=== PATIENT | female | born 1995 | race African-American/Black ===

== ENCOUNTER 2016-12-10 17:51 | Emergency (ER) | payer OTHER ==
[~2016-12-10] VITALS: Ht 165.1 cm; Wt 65.0 kg
[2016-12-10 17:55] VITALS: BP 145/99; PULSE 95; RESP 18; TEMP 99; O2SAT 98
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
[2016-12-10] MEDS ORDERED: HYDR25TA5 PO (18:26)
[2016-12-10 18:40] LABS: BLOOD, URINE NEG (NEG); COMMENT (UR) CULTURE INDICATED; CULTURE IF INDICATED CULTURE INDICATED; GLUCOSE,URINE NEG (NEG); KETONE, URINE NEG (NEG); MUCUS URINE FEW /lpf (OCC); NITRITE,URINE NEG (NEG); SQUAMOUS EPITHELIAL CELL URINE 24 /hpf (0-5); URINE COLOR YELLOW (YELLW/STRAW)
[2016-12-10] MEDS ORDERED: NITROFURANTOIN MONOHYD MACROCR 100 MG CAP PO ONE (18:45)
[2016-12-10] MEDS ORDERED: SODIUM CHLOR 0.9% 1000 ML INJ 1,000 ML IV ONE (18:45)
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
[2016-12-10] MEDS ORDERED: MACR100C2 PO (19:23)
[2016-12-10 19:59] VITALS: BP 120/76; PULSE 80; RESP 16; O2SAT 100
== END 2016-12-10 20:00 | disposition home or self-care (01) ==
LOC: NEPC 17:51
DX: S16.1XXA Strain of muscle, fascia and tendon at neck level, initial encounter (principal); N39.0 Urinary tract infection, site not specified; B96.89 Other specified bacterial agents as the cause of diseases classified elsewhere; E86.0 Dehydration; V43.52XA Car driver injured in collision with other type car in traffic accident, initial encounter
CPT/HCPCS: 71010; 72040; 72072; 81001; 84703; 87086; 99284; J7030